=== PATIENT | female | born 1980 | race Hispanic/Latino ===

== ENCOUNTER 2023-03-18 11:18 | Emergency (ER) | payer OTHER ==
[~2023-03-18 11:18] MED LIST: Iopamidol 300 61% 100 ML VIAL FS ONE
[2023-03-18] MEDS ORDERED: Ondansetron PF 4 MG/2 ML Vial ONE (11:47)
[2023-03-18 12:34] LABS: #Basophils 0.1 10x3/uL (0.0-0.2); #Monocytes 0.9 10x3/uL (0.0-1.1); #Neutrophils 13.9 10x3/uL (1.5-8.4); %Basophils 0.3 % (0.0-2.0); %Lymphocytes 5.1 % (18.0-47.0); %Monocytes 5.6 % (0.0-10.0); %Neutrophils 88.3 % (40.0-75.0); Hematocrit 45.3 % (34.9-44.5); Mean Corpuscular HGB CONC 30.9 g/dL (32.0-36.0); Mean Corpuscular Hemoglobin 28.9 pg (27.0-33.0); Mean Corpuscular Volume 93.4 fl (81.6-98.3); Mean Platelet Volume 8.9 fl (7.4-10.4); Platelet Count 455 10x3/uL (150-450); RBC Distribution Width 16.1 % (11.5-14.5); Red Blood Cell (RBC) Count 4.85 10x6/uL (3.90-5.03); White Blood Cell (WBC) Count 15.8 10x3/uL (3.5-10.5)
[2023-03-18 12:45] LABS: BHCG - Serum Negative (NEGATIVE); Pregs Control Background? CLEAR/WHITE (CLR/WHITE); Pregs Control Bar Appear? YES (CONTROL BAR)
[2023-03-18 12:51] LABS: ALT (SGPT) 11 U/L (8-55); AST (SGOT) 13 U/L (5-34); Albumin 3.6 g/dL (3.5-5.0); Alkaline Phosphatase 126 U/L (40-110); Anion Gap 16 mmol/L (10-20); BUN (Urea Nitrogen) 8 mg/dL (7.0-18.7); Bilirubin, Total 0.5 mg/dL (0.2-1.2); Calc. Creatinine Clearance 0 mL/min (70-130); Calcium 8.5 mg/dL (7.8-10.44); Carbon Dioxide 30 mmol/L (22-29); Chloride 100 mmol/L (98-107); Estimated GFR 117; Globulin 3.7 g/dL (2.4-3.5); Glucose 113 mg/dL (70-105); Lipase 10 U/L (8-78); Potassium 3.8 mmol/L (3.5-5.1); Protein, Total 7.3 g/dL (6.0-8.3); Sodium 142 mmol/L (136-145)
[2023-03-18 12:57] LABS: Troponin I Less than 0.010 ng/mL (< 0.028)
[2023-03-18] MEDS ORDERED: Promethazine HCl 25 MG in Sodium Chloride 0.9% 50 ML IVPB SCH (14:30)
[2023-03-18] MEDS ORDERED: Morphine 4 MG/ML VIAL ONE (15:17)
[2023-03-18 17:00] LABS: Bilirubin Neg (Negative); Blood, Urine 50 (Negative); Clarity Clear (Clear); Glucose, Urine (Dipstick) Normal (Negative); Ketone, Urine 50 mg/dL (Negative); Leukocyte 25 (Negative); Nitrite Negative (Negative); Protein, Urine (Dipstick) 15 mg/dl (Neg-Trace); Specific Gravity, Urine 1.005 (1.005-1.030)
[2023-03-18 17:15] LABS: Bacteria/HPF Rare-Few HPF (None Seen); CAUTI Indications for Culture Pelvic or flank pain; WBC/HPF 0-3 HPF (0-3)
[2023-03-18 17:17] LABS: Urine Culture Reflex No No
== END 2023-03-18 19:00 | disposition home or self-care (01) ==
LOC: CSHERS 11:18
DX: N39.0 Urinary tract infection, site not specified (principal); N20.0 Calculus of kidney; B37.31 Acute candidiasis of vulva and vagina; R00.0 Tachycardia, unspecified
CPT/HCPCS: 36415; 51701; 71045; 74177; 80053; 81001; 83690; 84484; 84703; 85025; 93005; 96361; 96374; 96375; J2270; J2405; J2550; Q9967